=== PATIENT | male | born 1965 | race Caucasian/White ===

== ENCOUNTER 2020-01-11 08:14 | Outpatient (CLI) | payer MEDICARE ==
[2020-01-11] MEDS ORDERED: OMEP-110 PO (09:00)
[2020-01-11] MEDS ORDERED: CHOL10003 PO (09:00)
== END 2020-01-11 23:59 | disposition home or self-care (01) ==
LOC: STAR 08:14
PROVIDERS: ATTEND Urology
DX: Z02.9 Encounter for administrative examinations, unspecified (principal)

== ENCOUNTER → 2020-02-04 | Outpatient (CLI) | payer MEDICARE ==
[~2020-02-04] MED LIST: CHOL10003 PO; OMEP-110 PO
== END | disposition home or self-care (01) ==
LOC: RAD 07:28
PROVIDERS: ATTEND Internal Medicine
DX: B18.2 Chronic viral hepatitis C (principal); Z90.49 Acquired absence of other specified parts of digestive tract
CPT/HCPCS: 76700

== ENCOUNTER 2020-02-20 05:46 | Emergency (ER) | payer MEDICARE ==
[~2020-02-20] VITALS: Ht 172.7 cm; Wt 70.0 kg
--- NOTE | 2020-02-20 05:55 | NUR ---
INITIAL PT CONTACT. PT PRESENTS TO THE ED C/O SWELLING OF PENIS, RASH IN THE GROIN AND "ITCHING ALL OVER". PT STATED THAT SYMPTOMS BEGAN ABOUT 3 HOURS AGO WHEN HE WOKE UP. PT DENIES ANY NEW SEXUAL CONTACT, CHANGE IN DETERGENT OR SOAPS OR ANY OTHER CHANGES RECENTLY. PT STATES "MY PECKER IS SWOLLEN AND MY TESTICLES ARE TOO, BUT THAT IS NORMAL". PT SITTING UPRIGHT ON GURNEY, NAD, VSS. PT DENIES ANY NEEDS AT THIS TIME. CALL LIGHT AND PERSONAL BELONGINGS AT BEDSIDE. ERP AT BEDSIDE.
--- NOTE | 2020-02-20 06:25 | NUR ---
PT PROVIDED URINE SAMPLE. SENT TO LAB.
--- NOTE | 2020-02-20 06:30 | NUR ---
LAB AT BEDSIDE
[2020-02-20 06:45] LABS: MICROSCOPIC NOT IND
[2020-02-20 06:48] LABS: BASOPHILS % (AUTO) 0 % (0-1); EOSINOPHILS % (AUTO) 1 % (1-7); LYMPHOCYTES % (AUTO) 10 % (22-44); MEAN CORPUSCULAR HEMOGLOBIN 31.6 pg (27.5-34.5); MEAN CORPUSCULAR HGB CONC 34.4 g/dL (33.2-36.2); MEAN PLATELET VOLUME 7.1 fL (7.4-10.4); MONOCYTES % (AUTO) 9 % (2-9); NEUTROPHILS % (AUTO) 80 % (42-75); PLATELET COUNT 267 x10^3/uL (130-400); RED BLOOD COUNT 5.44 x10^6/uL (4.38-5.82)
[2020-02-20 06:50] LABS: MD NO
[2020-02-20 06:54] LABS: ALBUMIN 3.7 g/dL (3.4-5.0); ANION GAP 3 mmol/L (5-15); CALCIUM 8.8 mg/dL (8.5-10.1); CHLORIDE 109 mmol/L (98-107)
--- NOTE | 2020-02-20 06:56 | NUR ---
BEDSIDE REPORT GIVEN TO TAYLOR CA
[2020-02-20 06:58] LABS: ALANINE AMINOTRANSFERASE 23 U/L (12-78); ALKALINE PHOSPHATASE 86 U/L (45-117); BILIRUBIN,TOTAL 0.6 mg/dL (0.2-1.0); CREATININE 0.89 mg/dL (0.7-1.3); TOTAL PROTEIN 6.9 g/dL (6.4-8.2)
--- NOTE | 2020-02-20 07:00 | NUR ---
ASSUMED CARE. PT WATCHING TV, NO DISTRESS
[2020-02-20] MEDS ORDERED: CEFTRIAXONE 1,000 MG IM ONE (08:00)
[2020-02-20] MEDS ORDERED: CEFTRIAXONE 1,000 MG ONE (08:05)
[2020-02-20] MEDS ORDERED: LIDOCAINE-MPF 1%, 5ML ONE (08:05)
[2020-02-20 08:15] VITALS: BP 149/71
--- NOTE | 2020-02-20 08:16 | NUR ---
MEDICATED WITH ANTIBIOTICS NOTED ON APR. AWAITING DC
== END 2020-02-20 08:40 | disposition home or self-care (01) ==
LOC: ED 06:44
DX: N45.1 Epididymitis (principal); N43.3 Hydrocele, unspecified; N43.40 Spermatocele of epididymis, unspecified; K21.9 Gastro-esophageal reflux disease without esophagitis; Z90.49 Acquired absence of other specified parts of digestive tract; Z88.5 Allergy status to narcotic agent
CPT/HCPCS: 36415; 76870; 80053; 81003; 85025; 96372; 99284; J0696; Q0177

== ENCOUNTER → 2020-05-04 | Outpatient (CLI) | payer MEDICARE ==
[~2020-05-04] MED LIST changes: +REGADENOSON 0.4 MG/5 ML SYRINGE ONE
== END | disposition home or self-care (01) ==
LOC: CFH 06:54
PROVIDERS: ATTEND Internal Medicine Cardiovascular Disease
DX: I08.3 Combined rheumatic disorders of mitral, aortic and tricuspid valves (principal); I25.9 Chronic ischemic heart disease, unspecified; R07.9 Chest pain, unspecified
CPT/HCPCS: 78452; 93017; 93306; 93356; A9502; J2785

== ENCOUNTER 2020-09-06 10:26 | Day surgery (SDC) | payer MEDICARE ==
[~2020-09-06] VITALS: Ht 175.3 cm; Wt 60.0 kg
[~2020-09-06 10:26] MED LIST changes: -REGADENOSON 0.4 MG/5 ML SYRINGE ONE
[2020-09-06] MEDS ORDERED: SODIUM CHLORIDE 0.9% 1,000 ML IV SCH (11:00)
[2020-09-06] MEDS ORDERED: CYAN100072 PO (11:14)
[2020-09-06] MEDS ORDERED: TRAZ150T62 PO (11:14)
[2020-09-06] MEDS ORDERED: NIAC500C3 PO (11:14)
[2020-09-06] MEDS ORDERED: ISOS30TA8 PO (11:14)
[2020-09-06] MEDS ORDERED: AMOX1TAB12 PO (11:14)
[2020-09-06] MEDS ORDERED: OLAN5TAB69 PO (11:14)
[2020-09-06 11:18] VITALS: BP 157/83
[2020-09-06 11:25] LABS: BASOPHILS % (AUTO) 1 % (0-1); EOSINOPHILS % (AUTO) 2 % (1-7); LYMPHOCYTES % (AUTO) 22 % (22-44); MEAN CORPUSCULAR HEMOGLOBIN 31.7 pg (27.5-34.5); MEAN CORPUSCULAR HGB CONC 34.3 g/dL (33.2-36.2); MEAN PLATELET VOLUME 7.3 fL (7.4-10.4); MONOCYTES % (AUTO) 8 % (2-9); NEUTROPHILS % (AUTO) 67 % (42-75); PLATELET COUNT 260 x10^3/uL (130-400); RED BLOOD COUNT 5.59 x10^6/uL (4.38-5.82); RED CELL DISTRIBUTION WIDTH 12.9 % (9.4-14.8)
[2020-09-06 11:36] LABS: ANION GAP 6 mmol/L (5-15); CHLORIDE 109 mmol/L (98-107); CREATININE 0.84 mg/dL (0.7-1.3)
[2020-09-06] MEDS ORDERED: DIPHENHYDRAMINE 50 MG/ML, 1ML ONE (13:21)
[2020-09-06] MEDS ORDERED: LIDOCAINE-MPF 1%, 5ML ONE (13:21)
[2020-09-06] MEDS ORDERED: VERAPAMIL 2.5 MG/ML, 2ML ONE (13:21)
[2020-09-06] MEDS ORDERED: MIDAZOLAM 1 MG/ML, 5ML ONE (13:21)
[2020-09-06] MEDS ORDERED: HEPARIN 1,000 UNITS/ML, 10ML ONE (13:21)
== END 2020-09-06 15:13 | disposition home or self-care (01) ==
LOC: CACL 10:26
PROVIDERS: ATTEND Internal Medicine Cardiovascular Disease
DX: R94.39 Abnormal result of other cardiovascular function study (principal); I20.0 Unstable angina; F17.210 Nicotine dependence, cigarettes, uncomplicated; Z79.899 Other long term (current) drug therapy; Z88.5 Allergy status to narcotic agent; Z88.8 Allergy status to other drugs, medicaments and biological substances
CPT/HCPCS: 36415; 80048; 85025; 93458; 99156; C1769; C1894; J1200; J1644; J2250; Q9967